=== PATIENT | female | born 1955 | race Caucasian/White ===

== ENCOUNTER 2016-11-04 23:52 | Emergency (ER) | payer OTHER, SELFPAY ==
--- NOTE | 2016-11-05 00:12 | ERPHSYRPT ---
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 For further evaluation treatment. No fever or chills. No difficulty swallowing or breathing. No swelling spreading into the face or neck. Timing/Duration: gradual onset Severity: moderate ENT Location: dental Prearrival Treatment: no prearrival treatment Modifying Factors: Improves With: nothing Associated Symptoms: jaw pain, tooth pain, No facial pain/swelling Allergies/Adverse Reactions: No Known Drug Allergies Allergy (Verified 11/05/16 00:14) Home Medications: Blood Pressure Med 11/05/16 [History] - Review of Systems Constitutional: No Symptoms Eyes: No Symptoms Ears, Nose, & Throat: Other (as noted history of present illness) Respiratory: No Symptoms Cardiac: No Symptoms Abdominal/Gastrointestinal: No Symptoms Genitourinary Symptoms: No Symptoms Musculoskeletal: No Symptoms Skin: No Symptoms Neurological: No Symptoms Psychological: No Symptoms Endocrine: No Symptoms Hematologic/Lymphatic: No Symptoms Immunological/Allergic: No Symptoms All Other Systems: Reviewed and Negative - Past Medical History Cardiac History: Hypertension - Past Surgical History Past Surgical History: Yes Gastrointestinal: Cholecystectomy Female Surgical History: Hysterectomy - Nursing Vital Signs Nursing Vital Signs: Initial Vital Signs Temperature 97.9 F 11/05/16 00:01 Pulse Rate 68 11/05/16 00:01 Respiratory Rate 18 11/05/16 00:01 Blood Pressure 147/80 11/05/16 00:01 O2 Sat by Pulse Oximetry 96 11/05/16 00:01 Pain Scale Pain Intensity 0 - Physical Exam General Appearance: mild distress, obese Eye Exam: bilateral eye: normal inspection, PERRL, EOMI Ear Exam: bilateral ear: auricle normal, canal normal, TM normal Nasal Exam: normal inspection Throat Exam: dental tenderness (dentition #1/2 with market. Gingival edema localized swelling tenderness consistent with dental abscess with periodontitis) , maxillary swelling (slight local only), moist mucus membranes, No mandibular swelling Neck Exam: normal inspection, non-tender, supple, full range of motion Cardiovascular/Respiratory Exam: normal breath sounds, regular rate/rhythm, heart sounds normal, No chest non-tender Abdominal Exam: non-tender, soft Skin Exam: normal color, warm, dry, No rash SpO2 Interpretation: normal SpO2: 96 Oxygen Delivery: Room Air Ordered Tests: Medication Summary Discontinued Medications Generic Name Dose Route Start Last Admin Trade Name Sulma PRN Reason Stop Dose Admin Amoxicillin/Clavulanate Potassium 875 mg 11/05/16 00:15 11/05/16 00:20 Augmentin 875-125 Tablet PO 11/05/16 00:16 875 mg STAT ONE Administration Amoxicillin/Clavulanate Potassium Confirm 11/05/16 00:18 Augmentin 875-125 Tablet Administered 11/05/16 00:19 Dose 875 mg .ROUTE .STPeople and Pages-MED ONE - Progress Progress: unchanged Progress Note: 11/05/16 04:20"Patient's clinical picture and exam consistent with pertinent tightness/dental abscess tooth 1 and 2 essentially localized to the area treated with oral Augmentin with prescription for such an emphasis on follow up with dental care for which list was given to the patient or primary care provider as necessary. Criteria for return to ER were also stressed. See discharge diagnoses and instructions. Counseled pt/family regarding: diagnosis, need for follow-up - Departure Time of Disposition: 00:16 Departure Disposition: Home Clinical Impression: Dental abscess Condition: Stable Critical Care Time: No Referrals: ASPEN ARORA [Primary Care Provider] - Instructions: Tooth Abscess Additional Instructions: Rinse mouth for 1 minute with medicated mouthwash spit out and rinsed again for 1 minute with warm water and spit out several times a day. Tylenol and/or ibuprofen for discomfort. Start antibiotic prescription tomorrow as soon as possible. Very important to follow-up with a dentist as soon as possible see list and if necessary follow-up with her medical provider. Return to emergency room for fever chills markedly increased swelling up into/near your right eye or anterior neck or any difficulty swallowing or breathing. Prescriptions: Amoxicillin/Potassium Clav [Augmentin 875 mg (Amox Tr-K Clv 875-125 mg)] 1 each PO BID #20 tablet
[2016-11-05] MEDS ORDERED: Augmentin 875-125 Tablet PO ONE (00:15)
[2016-11-05] MEDS ORDERED: Augmentin 875-125 Tablet ONE (00:18)
[2016-11-05 00:43] VITALS: BP 140/75; PULSE 72
[2016-11-05 04:22] VITALS: O2SAT 96
== END 2016-11-05 00:44 | disposition home or self-care (01) ==
LOC: ED 23:52
DX: K04.7 Periapical abscess without sinus (principal)
CPT/HCPCS: 99283; A9270-GY

== ENCOUNTER 2018-03-20 20:29 | Emergency (ER) | payer OTHER, SELFPAY ==
[2018-03-20] MEDS ORDERED: MOTRIN 600 MG PO ONE (21:28)
--- NOTE | 2018-03-20 21:32 | ERPHSYRPT ---
- History of Present Illness Time Seen by Provider: 03/20/18 21:24 Source: patient Exam Limitations: no limitations Patient Subjective Stated Complaint: Left knee pain Triage Nursing Assessment: Patient brought back to ED via w/c at this time. Patient A+O X 3. Patient complains of left knee pain for one week that is getting worse 10/10. Patient denies injuring left knee/leg. Patient unable to bear a lot of weight or bend over. No visible bruising, swelling or redness noted to left knee. Physician History: 62-year-old white female arrives with complaint of pain in her left knee for one week pain is located anterior left knee worse with standing and walking. Patient denies any injury. Past medical history includes high blood pressure. Past surgical history includes cholecystectomy and hysterectomy. Method of Injury: unknown Occurred: last week Quality: constant Severity of Pain-Max: moderate Severity of Pain-Current: mild Lower Extremities Pain: knee: left Modifying Factors: Improves With: nothing Associated Symptoms: none Allergies/Adverse Reactions: No Known Drug Allergies Allergy (Verified 03/20/18 21:03) Home Medications: Blood Pressure Med 11/05/16 [History] Hx Tetanus, Diphtheria Vaccination/Date Given: Yes Hx Influenza Vaccination/Date Given: No Hx Pneumococcal Vaccination/Date Given: No Immunizations Up to Date: Yes - Review of Systems Constitutional: No Fever, No Chills Eyes: No Symptoms Ears, Nose, & Throat: No Symptoms Respiratory: No Cough, No Dyspnea Cardiac: No Chest Pain, No Edema, No Syncope Abdominal/Gastrointestinal: No Abdominal Pain, No Nausea, No Vomiting, No Diarrhea Genitourinary Symptoms: No Dysuria Musculoskeletal: Joint Pain (LEFT KNEE PAIN), No Back Pain, No Neck Pain Skin: No No Symptoms, No Rash Neurological: No Dizziness, No Focal Weakness, No Sensory Changes Psychological: No Symptoms Endocrine: No Symptoms (is a sebaceous cyst needs X) - Past Medical History Pertinent Past Medical History: Yes Neurological History: No Pertinent History ENT History: No Pertinent History Cardiac History: Hypertension Respiratory History: No Pertinent History Endocrine Medical History: No Pertinent History Musculoskeletal History: No Pertinent History GI Medical History: No Pertinent History History: No Pertinent History Psycho-Social History: No Pertinent History Female Reproductive Disorders: No Pertinent History - Past Surgical History Past Surgical History: Yes Neuro Surgical History: No Pertinent History Cardiac: No Pertinent History Respiratory: No Pertinent History Gastrointestinal: Cholecystectomy Female Surgical History: Hysterectomy - Social History Smoking Status: Never smoker Exposure to second hand smoke: No Drug Use: none Patient Lives Alone: No - Female History Hx Last Menstrual Period: Menopausal Hx Now: No - Nursing Vital Signs Nursing Vital Signs: Initial Vital Signs Temperature 97.9 F 03/20/18 20:49 Pulse Rate 85 03/20/18 20:49 Respiratory Rate 20 03/20/18 20:49 Blood Pressure 132/60 03/20/18 20:49 O2 Sat by Pulse Oximetry 95 03/20/18 20:49 Pain Scale Pain Intensity 10 - Physical Exam General Appearance: alert Eyes, Ears, Nose, Throat Exam: moist mucous membranes Neck Exam: non-tender, supple Cardiovascular/Respiratory Exam: chest non-tender, normal breath sounds, regular rate/rhythm, no respiratory distress Gastrointestinal/Abdominal Exam: non-tender, guarding Back Exam: normal inspection, No vertebral tenderness Hips Exam: bilateral: non-tender, normal inspection, normal range of motion, no evidence of injury Legs Exam: bilateral leg: non-tender, normal inspection, normal range of motion , no evidence of injury Knees Exam: right knee: non-tender, normal inspection, normal range of motion, left knee: other (left knee tender with pander with palpation and movement anteriorly) Ankle Exam: bilateral ankle: non-tender, normal inspection, normal range of motion, no evidence of injury Foot Exam: bilateral foot: non-tender, normal inspection, normal range of motion , no evidence of injury DTR - Lower Extremities Exam: ankle (R): 2+, ankle (L): 2+ Neuro/Tendon Exam: normal sensation, normal motor functions Mental Status Exam: alert, oriented x 3, cooperative Skin Exam: normal color, warm, dry SpO2 Interpretation: normal (95%) SpO2: 95 Oxygen Delivery: Room Air - Course Nursing assessment & vital signs reviewed: Yes - Radiology Exams Left Knee X-ray Interpretation: Interpreted by me, No Fracture, No Subluxation Ordered Tests: Active Orders 24 hr Category Date Time Status Immobilizer STAT Care 03/20/18 22:15 Active KNEE (3 VIEWS) Stat Exams 03/20/18 21:29 Ordered Medication Summary Discontinued Medications Generic Name Dose Route Start Last Admin Trade Name Freq PRN Reason Stop Dose Admin Ibuprofen 600 mg 03/20/18 21:28 03/20/18 21:53 Motrin 600 Mg PO 03/20/18 21:29 600 mg STAT ONE Administration Ibuprofen Confirm 03/20/18 21:45 Motrin 600 Mg Administered 03/20/18 21:46 Dose 600 mg .ROUTE .STK-MED ONE - Progress Progress: improved Progress Note: 03/20/18 22:18 X-ray patient's left knee negative fracture negative subluxation. Will place patient in the left knee immobilizer. Will write for Drybranch for pain I reviewed the patient's inspect report I do not see any evidence of recurrent narcotic prescriptions. Patient may also take Advil. I've offered the patient crutches she does not want any. - Departure Time of Disposition: 22:19 Departure Disposition: Home Clinical Impression: Left anterior knee pain Strain of left knee Qualifiers: Encounter type: initial encounter Qualified Code(s): S86.912A - Strain of unspecified muscle(s) and tendon(s) at lower leg level, left leg, initial encounter Condition: Fair Critical Care Time: No Referrals: ASPEN ARORA [Primary Care Provider] - Instructions: Knee Sprain (DC), Knee Pain (DC) Additional Instructions: Return home. Ice to left knee 24-48 hours. Drybranch as prescribed. May also take Advil every 6 hours with food as needed for pain. Use knee immobilizer 48-72 hours longer if pain persists. Follow-up with your family doctor if symptoms are worse, no better in 48 hours, or persist longer than one week. Return for acute distress or for severe symptoms. Your x-rays have been preliminarily read they will be reread tomorrow you will be contacted if any discrepancies are noted. Prescriptions: Hydrocodone/Acetaminophen [Drybranch 5-325 Tablet] 1 tab PO Q4-6HPRN PRN #10 tablet MDD 6 tablets PRN Reason: Pain
[2018-03-20] MEDS ORDERED: MOTRIN 600 MG ONE (21:45)
[2018-03-20] MEDS ORDERED: NORCO 5/325 MG PO ONE (22:22)
[2018-03-20] MEDS ORDERED: NORCO 5/325 MG ONE (22:36)
[2018-03-20 22:45] VITALS: BP 145/70; PULSE 75; O2SAT 97
--- NOTE | 2018-03-21 13:24 | XRAY ---
Indication: Knee pain. Decreased range of motion. Comparison: None 4 views of the left knee demonstrates mild/moderate tricompartmental degenerative changes, greatest medial compartment. Patellofemoral articulation symmetric. Tiny soft tissue calcified granuloma anterior to the patella. No other bony, articular, or soft tissue abnormalities.
== END 2018-03-20 23:00 | disposition home or self-care (01) ==
LOC: ED 20:29
DX: S86.912A Strain of unspecified muscle(s) and tendon(s) at lower leg level, left leg, initial encounter (principal); M25.562 Pain in left knee
CPT/HCPCS: 73562; 99284; A9270-GY